=== PATIENT | female | born 1990 | race Hispanic/Latino ===

== ENCOUNTER 2018-03-10 18:13 | Emergency (ER) | payer OTHER ==
[2018-03-10] MEDS ORDERED: IBUPROFEN 600 MG TABLET ONE (19:12)
== END 2018-03-10 20:31 | disposition home or self-care (01) ==
LOC: EDH 18:13
DX: S16.1XXA Strain of muscle, fascia and tendon at neck level, initial encounter (principal); S39.92XA Unspecified injury of lower back, initial encounter; Z88.0 Allergy status to penicillin; Z98.890 Other specified postprocedural states; V49.59XA Passenger injured in collision with other motor vehicles in traffic accident, initial encounter; Y93.89 Activity, other specified; Y92.89 Other specified places as the place of occurrence of the external cause; Y99.8 Other external cause status
CPT/HCPCS: 72125; 81025